=== PATIENT | male | born 2005 | race Caucasian/White ===

== ENCOUNTER 2025-06-22 16:55 | Emergency (ER) | payer MEDICAID, SELFPAY ==
--- NOTE | ~2025-06-22 | XR_ITS ---
CLINICAL HISTORY: pain --- Additional Notes or Special Instructions: constipation? 1 view abdomen Comparison: None provided Findings: No pneumoperitoneum or pneumatosis. Mild constipation. No abnormal calcifications. No acute fractures. IMPRESSION: The bowel gas pattern is within normal limits. This document has been electronically signed by: Sudeep Schaffer MD on 06/22/2025 23:16:55
[2025-06-22 17:29] VITALS: BP 114/70; PULSE 70; RESP 18; TEMP 37; O2SAT 98; BMI 41.4
--- NOTE | 2025-06-22 17:29 | ED.ABDPAIN ---
HPI - Abdominal Pain General Chief Complaint: Abdominal Pain Stated Complaint: abd pain sent from Time Seen by Provider: 06/22/25 20:48 Source: patient Limitations: no limitations History of Present Illness ED Provider: No Thomson PA-C HPI narrative: 20-year-old male with a history of obesity presents with the abdominal pain for a year. Pain over right lower abdomen, unable to describe the nature of his discomfort. Pain worse with movement, especially if he is physically active for long periods of time. Associated nausea at times. Denies vomiting, diarrhea, constipation, fever. Denies dysuria, back pain, flank pain. Related Data Allergies Allergy/AdvReac Type Severity Reaction Status Date / Time No Known Allergies Allergy Verified 06/22/25 17:30 Review of Systems Review of Systems Yes all other systems are reviewed and are negative Constitutional: Denies fatigue and Denies fever(s) Cardiovascular: Denies chest pain and Denies dyspnea Respiratory: Denies cough and Denies dyspnea Gastrointestinal: Reports abdominal pain, Denies constipation, Denies diarrhea, Reports nausea and Denies vomiting Genitourinary: Denies hematuria, Denies dysuria and Denies flank pain Musculoskeletal: Denies back pain Endocrine: Denies fatigue [facility] Past Medical History Attestation statement: The following information was validated with the patient. Social History Social History Advance Directives: No Advance Directives Information Provided: No Physical Exam ED Vital Signs: Vital Signs - 24 hr 06/22/25 17:29 Temperature 98.6 F Pulse Rate 70 Respiratory Rate 18 Blood Pressure 114/70 Pulse Oximetry 98 Oxygen Delivery Method Room Air BMI result Body Mass Index 41.4 Const Other: Alert well-appearing Orientation/consciousness: patient oriented x3 Resp Effort & Inspection: normal respiratory effort Cardio Other: Normal peripheral perfusion GI Other: Abdomen is soft, obese, mild tenderness within right lower to right mid abdomen without guarding, Skin Other: Warm dry no rash Neuro General: patient oriented x3, gait normal, no focal motor deficits and CN's II-XI intact bilaterally Psych Other: Cooperative Course Course Course Narrative: This is an RME: Additional HPI, ROS, PE not included below will be deferred to primary provider. RME assessment and note performed by: Kady Rahman PA-C This is a [id number] who presents to the ER with a complaint of right lower abdominal pain, intermittent x 1 year. No fevers, chills, nausea, vomiting, diarrhea. Endorses constipation. No urinary symptoms. Pain occasionally goes into the right testicle. Patient has tenderness palpation in the right lower quadrant. Plan: Labs, UA, further ER eval needed Medical Decision Making Medical Decision Making [facility] Narrative: 20-year-old male with a history of obesity presents with the abdominal pain for a year. Pain over right lower abdomen, unable to describe the nature of his discomfort. Pain worse with movement, especially if he is physically active for long periods of time. Associated nausea at times. Denies vomiting, diarrhea, constipation, fever. Denies dysuria, back pain, flank pain. Problem: Obesity History: Per patient I have considered the following differential diagnoses: Biliary colic , cholecystitis, appendicitis, constipation, UTI, renal colic Plan: Patient here with a very prolonged period of intermittent symptoms. His vitals are stable his exam was benign, screening labs are in process, urine not infected. I have low suspicion for any pathology other than constipation. Ordering a KUB. He does not warrant advanced imaging at this time. To note, he is asking to eat. I have independently reviewed the following tests: Labs: Slight leukocytosis, not anemic, no electrolyte abnormality, urine not infected KUB:Comparison: None provided Findings: No pneumoperitoneum or pneumatosis. Mild constipation. No abnormal calcifications. No acute fractures. IMPRESSION: The bowel gas pattern is within normal limits. Differential Diagnosis Differential Diagnoses: The differential diagnosis associated with the presentation includes See medical decision-making Admission/Observation Consideration of admission/observation: Escalation of care including admission/observation considered Not applicable Lab Data [facility] Lab Attestation statement: I reviewed the patient's lab results. 06/22/25 21:05 06/22/25 21:05 Labs: Lab Results 06/22/25 06/22/25 Range/Units 18:37 21:05 WBC 14.0 H (4.8-10.8) X10*3/uL RBC 5.20 (4.60-5.80) X10*6/uL Hgb 15.9 (14.0-18.0) g/dl Hct 45.5 (42.0-52.0) % MCV 87.5 (80.0-98.0) fL MCH 30.6 (27.0-33.0) pg MCHC 34.9 (31.0-36.0) g/dl RDW 12.8 (11.0-16.0) % Plt Count 356 (160-400) X10*3/uL MPV 10.7 (9.4-12.4) fL Immature Gran % (Auto) 0.7 H (0.0-0.4) % Neut % (Auto) 61.9 (45-73) % Lymph % (Auto) 24.5 (20-40) % [place] % (Auto) 11.7 H (2-11) % Eos % (Auto) 0.8 (0-4) % Baso % (Auto) 0.4 (0-2) % Lymph # (Auto) 3.4 (1.2-4.9) X10*3/uL [place] # (Auto) 1.6 H (0.1-1.2) X10*3/uL Eos # (Auto) 0.1 (0.0-0.4) X10*3/uL Baso # (Auto) 0.1 (0.0-0.2) X10*3/uL Abs Immat Gran (auto) 0.10 H (0.00-0.03) X10*3/uL Absolute Neuts (auto) 8.6 H (2.0-8.3) x10*3/uL Absolute Nucleated RBC 0.000 (0.0-0.012) X10*3/uL Nucleated RBC % (auto) 0.0 (0.0-0.2) /100WBC Smear Tech's Comments VERIFIED Sodium 139 (135-145) mmol/L Potassium 4.2 (3.3-5.1) mmol/L Chloride 103 (96-108) mmol/L Carbon Dioxide 29 (22-29) mmol/L Anion Gap 11 L (12-20) BUN 16 (9-16) mg/dL Creatinine 0.93 (0.5-1.4) mg/dL Estim Creat Clear Calc 159.2 Estimated GFR > 60 Random Glucose 89 (60-115) mg/dL Calcium 9.7 (8.4-10.2) mg/dL Total Bilirubin 0.5 (0.0-1.0) mg/dL Direct Bilirubin 0.2 (0.0-0.5) mg/dL AST 24 (5-37) U/L ALT 42 H (0-40) U/L Alkaline Phosphatase 62 (39-117) U/L Total Protein 8.0 (6.5-8.0) g/dL Albumin 4.8 (3.5-5.0) g/dL Lipase 14 (8-78) U/L Urine Color Yellow Urine Appearance Clear Urine pH 7.0 (5.0-9.0) Ur Specific [place] 1.020 (1.005-1.025) Urine Protein Negative (Neg-Trace) mg/dL Urine Glucose (UA) Negative (Negative) mg/dL Urine Ketones Negative (Negative) mg/dL Urine Blood Negative (Negative) Urine Nitrite Negative (Negative) Ur Leukocyte Esterase Negative (Negative) Radiology Impression Discussion of test interpretation with radiology: I have reviewed the radiologist's reading. Medications Administered Discontinued Medications Generic Name Dose Route Start Last Admin Trade Name Freq PRN Reason Stop Dose Admin Ketorolac Tromethamine 15 mg 06/22/25 20:58 06/22/25 21:19 Ketorolac Tromethamine 15 Mg/Ml Vial IVPUSH 06/22/25 20:59 15 mg ONCE ONE Administration Discharge Plan Discharge Clinical Impression: Constipation Patient Disposition: Home, Self-Care Instructions: Constipation (ED) Additional Instructions: Your screening labs were overall normal. The x-ray revealed that you are constipated. See home care instructions. Use [id number] Colace twice a day, use [id number] MiraLax a few times a day, until you have multiple large volume bowel movements. Once you clear your current stool burden, you may require the use of Colace daily with the MiraLax daily, to help maintain regularity. Print Language: Chinese
[2025-06-22 18:48] LABS: Appearance Urine Clear; Glucose Urine UA Negative (Negative); PH 7.0 (5.0-9.0); Specific Gravity - Urine 1.020 (1.005-1.025)
[2025-06-22 21:09] LABS: Hematocrit 45.5 % (42.0-52.0); Hemoglobin 15.9 g/dl (14.0-18.0); Imm Gran Abs Auto 0.10 X10*3/uL (0.00-0.03); Imm Gran Pct Auto 0.7 % (0.0-0.4); Lymphocytes Absolute Auto 3.4 X10*3/uL (1.2-4.9); MANUAL DIFF FLAG SCAN; Mean Corpuscular HGB Conc 34.9 g/dl (31.0-36.0); Mean Corpuscular Hemoglobin 30.6 pg (27.0-33.0); Mean Corpuscular Volume 87.5 fL (80.0-98.0); NRBC Abs Auto 0.000 X10*3/uL (0.0-0.012); NRBC Pct Auto 0.0 /100WBC (0.0-0.2); Platelet Count 356 X10*3/uL (160-400); Red Blood Count 5.20 X10*6/uL (4.60-5.80); SCAN SMEAR FLAG 1; White Blood Count 14.0 X10*3/uL (4.8-10.8)
[2025-06-22 21:23] LABS: Alanine Aminotransferase 42 U/L (0-40); Albumin Level 4.8 g/dL (3.5-5.0); Alkaline Phosphatase 62 U/L (39-117); Anion Gap 11 (12-20); Aspartate Amino Transferase 24 U/L (5-37); Blood Urea Nitrogen 16 mg/dL (9-16); Calcium 9.7 mg/dL (8.4-10.2); Carbon Dioxide 29 mmol/L (22-29); Chloride 103 mmol/L (96-108); Creatinine Clr Calc Pharmacy 159.2; Estimated Glomerular Filt Rate > 60; Lipase 14 U/L (8-78); Potassium 4.2 mmol/L (3.3-5.1); Sodium 139 mmol/L (135-145); Total Protein 8.0 g/dL (6.5-8.0)
[2025-06-22 23:58] VITALS: BP 121/72; PULSE 70; RESP 16; TEMP 36.9; O2SAT 99
== END 2025-06-22 23:58 | disposition home or self-care (01) ==
PROVIDERS: Physician Assistant Medical; Emergency Provider Student in an Organized Health Care Education/Training Program
DX: K59.00 Constipation, unspecified (principal); R10.9 Unspecified abdominal pain; R11.0 Nausea
CPT/HCPCS: 36415; 74018; 80048; 80076; 81003; 83690; 85025; 96374; 99284; J1885

== ENCOUNTER → 2025-06-22 20:58 | Outpatient (BNV) | payer MEDICAID, SELFPAY | PROVIDERS: Emergency Provider Student in an Organized Health Care Education/Training Program; Visit Provider Radiology Diagnostic Radiology | DX: R10.31 Right lower quadrant pain (principal) | CPT/HCPCS: 74018 ==